=== PATIENT | male | born 1995 | race Caucasian/White ===

== ENCOUNTER 2017-08-14 22:08 | Emergency (ER) | payer SELFPAY ==
[~2017-08-14] VITALS: Ht 172.7 cm; Wt 65.9 kg
[2017-08-14 22:10] VITALS: BP 133/91; PULSE 101; RESP 16; TEMP 98.4; O2SAT 99
--- NOTE | 2017-08-14 22:40 | PD ---
HPI Chief Complaint: Back/ Neck Pain or Injury Time Seen by Provider: 22:25 Travel History International Travel<30 days: No Contact w/Intl Traveler<30days: No Traveled to known affect area: No History of Present Illness HPI 22-year-old male with no significant medical history presents to the emergency department for evaluation. Patient states that he was sitting in his chair. He stood up and felt a pain in his right lower back that radiated into his buttock. This was brief. He is not having pain currently. Denies any focal deficits weakness. No saddle paresthesia, loss of bowel or bladder, or lower extremity weakness. He recalls no other injury. He has no other symptoms to report. History Past Medical Histgory Medical History: Denies Significant Hx Social History Alcohol Use: No Tobacco Use: No Allergies-Medications (Allergen,Severity, Reaction): Coded Allergies: No Known Allergies (Unverified , 08/14/17) Reported Meds & Prescriptions Reported Meds & Active Scripts Active No Active Prescriptions or Reported Medications Review of Systems Except as stated in HPI: all other systems reviewed are Neg Physical Exam Narrative GENERAL: Well-nourished, well-developed male patient in no acute distress. SKIN: Focused skin assessment warm/dry. HEAD: Normocephalic. EYES: No scleral icterus. No injection or drainage. NECK: Supple, trachea midline. No JVD or lymphadenopathy. CARDIOVASCULAR: Regular rate and rhythm without murmurs, gallops, or rubs. RESPIRATORY: Breath sounds equal bilaterally. No accessory muscle use. GASTROINTESTINAL: Abdomen soft, non-tender, nondistended. MUSCULOSKELETAL: No cyanosis, or edema. Negative straight leg. BACK: No midline tenderness without obvious deformity. No CVA tenderness. Data Data Last Documented VS Vital Signs Date Time Temp Pulse Resp B/P (MAP) Pulse Ox O2 Delivery O2 Flow Rate FiO2 08/14/17 22:10 98.4 101 16 133/91 (105) 99 MDM Medical Screen Exam Complete: Yes Emergency Medical Condition: No Differential Diagnosis Low back strain Narrative Course 22year-old male presents to emergency for evaluation of low back pain, acute onset when he stood up from a chair that radiated into his right buttock. Has since resolved. Patient has no focal deficits on examination. I have encouraged [id number] NSAIDs. At this time there are no urgent or emergent needs medical intervention identified. A medical screening exam was performed: At the time of evaluation the presenting medical condition was determined not to be of an emergent nature. The patient was given the option of receiving additional care, but declined. Patient was given options for additional community resources from which to obtain care. The Patient Has Been advised to seek medical attention for their presenting complaint. The patient has been advised to return to the ER at any time if an emergent condition develops. Primary Impression: Encounter for medical screening examination Scripts No Active Prescriptions or Reported Meds Condition: Stable Marjorie Nichole Aug 14, 2017 22:40
== END 2017-08-14 23:30 | disposition left against medical advice (07) ==
LOC: NEPD 22:08
DX: M54.5 Low back pain (principal)
CPT/HCPCS: 99281